=== PATIENT | female | born 1975 ===

== ENCOUNTER 2017-10-01 08:49 | Day surgery (SDC) | payer MEDICAID ==
[2017-10-01] MEDS ORDERED: Midazolam 2 MG/2 ML VIAL ONE (10:21)
[2017-10-01] MEDS ORDERED: Lidocaine Hydrochloride 5 ML INJ ONE (10:22)
[2017-10-01] MEDS ORDERED: Absorbable Gelatin Sponge Size 12-7 ONE (10:28)
--- NOTE | 2017-10-01 10:35 | CP.SDSHP ---
Same Day Surgery H & P - History Proposed Procedure: US guided liver biopsy Pre-Op Diagnosis: Abnormal LFTs - Allergies Allergies: Allergies No Known Allergies Allergy (Verified 09/26/17 09:01) - Physical Exam Vital Signs: Vital Signs 10/01/17 09:26 Temperature 97.6 F Pulse Rate 73 Respiratory 20 Rate Blood Pressure 125/84 O2 Sat by Pulse 99 Oximetry Mental Status: Alert & Oriented x3 Neuro: WNL Heart: WNL Lungs: WNL - {Optional Preform as Required} Abdomen: WNL - Impression Impression: Pt with abnormal LFTs refered for liver biopsy. Plan US guided liver biopsy. Informed consent obtained. Pt. Evaluated Today:Candidate for Anesthesia & Procedure: Yes (ASA 2 Malampati 3) - Date & Time Date: 10/01/17 Time: 10:05 Short Stay Discharge - Short Stay Discharge Admitting Diagnosis/Reason for Visit: NONSPEC ELEV OF LEVELS OF TRANSAMNS & LACTIC ACID Disposition: HOME/ ROUTINE
--- NOTE | 2017-10-01 10:37 | PCM.SURG1 ---
Surgeon's Initial Post Op Note - Surgeon's Notes Surgeon: Olu Holguin MD Wrapper Stripper: NONE Type of Anesthesia: IV Sedation, Local Pre-Operative Diagnosis: Abnormal LFts Operative Findings: US showed unremarkable right hepatic lobe Post-Operative Diagnosis: Abnormal LFts Operation Performed: US guided liver biopsy. Three 18-g core specimen sent for histology. Biopsy tract embolized with gelfoam. Specimen/Specimens Removed: 18 gauge core x 3 Estimated Blood Loss: EBL {In ML}: 1 Blood Products Given: N/A Drains Used: No Drains Post-Op Condition: Good Date of Surgery/Procedure: 10/01/17 Time of Surgery/Procedure: 10:30
[2017-10-01 11:40] VITALS: RESP 18; TEMP 97.2; O2SAT 100
[2017-10-01 11:52] VITALS: BP 134/84; PULSE 71
--- NOTE | 2017-10-02 11:29 | US ---
PROCEDURE: Date of procedure: Procedure: 1. Ultrasound-guided core liver biopsy, CPT 23454 2. Ultrasound guidance for biopsy, 12504 Medications: The patient is sedated by the anesthesiologist. HISTORY: Abnormal LFTs TECHNIQUE: Following informed consent and procedure time-out, the patient was placed supine on bed and limited ultrasound showed a normal appearing right hepatic lobe. After patient abdomen was prepped and draped in the usual sterile fashion and the skin was anesthetized with 2% lidocaine, an 18 gauge core needle was advanced percutaneously under direct ultrasound guidance into the right hepatic lobe. Upon confirmation of needle position, three 18 gauge core specimens were obtained and sent for routine pathology. The biopsy to tract was then embolized with Gelfoam. A post biopsy ultrasound showed no hematoma. A dressing was applied. IMPRESSION: Ultrasound-guided core biopsy right hepatic lobe. There were no immediate complications.
== END 2017-10-01 12:09 | disposition home or self-care (01) ==
LOC: C.SPRAD 08:49
PROVIDERS: ATTEND Radiology Vascular & Interventional Radiology
DX: R74.0 Nonspecific elevation of levels of transaminase and lactic acid dehydrogenase [LDH] (principal)
CPT/HCPCS: 47000; 76942; 88307; 88313; J2250; J3010